=== PATIENT | male | born 1990 | race Caucasian/White ===

== ENCOUNTER 2017-06-17 16:51 | Emergency (ER) | payer MEDICAID ==
--- NOTE | 2017-06-17 17:16 | ED Physician Chart ---
ED Chief Complaint/HPI - Patient Information Date Seen:: 06/17/17 Time Seen:: 17:08 Chief Complaint:: Dog bites to L lower leg. History of Present Illness:: Brought in by private auto because pt sustained dog bites to L mid medial lower leg at about 4:30 pm today. Pt tried to separate a dog fight between his 2 dogs and accidentally was bitten by one of his dogs. Last tetanus immunization was less than 5 years ago. Pt remains ambulatory without difficulty. Pt states that his 2 dogs are up to date with immunizations. Allergies:: Allergies Allergy/AdvReac Type Severity Reaction Status Date / Time No Known Allergies Allergy Verified 06/17/17 17:02 Vitals:: Vital Signs - 8 hr 06/17/17 17:02 Temp 98.2 F HR 96 RR 18 BP 114/77 O2 Sat % 97 Historian:: Patient Family MD/PCP:: Unknown LMP:: N/A Review:: Nurse's Note Reviewed ED Review of Systems - Review of Systems General/Constitutional: No fever, No weight loss, No weakness, No edema Skin: No bruising, Other (Dog bites to L lower leg, see HPI.) Head: No headache, No light-headedness Eyes: No loss of vision, No pain, No diplopia ENT: No earache, No nasal drainage, No sore throat Neck: No neck pain, No swelling, No thyromegaly, No stiffness, No mass noted Cardio Vascular: No chest pain, No palpitations Pulmonary: No SOB, No cough, No wheezing GI: No nausea, No vomiting, No diarrhea, No pain G/U: No dysuria, No frequency, No hematuria Musculoskeletal: No bone or joint pain, No back pain, No muscle pain Endocrine: No polyuria, No polydipsia Psychiatric: No prior psych history Hematopoietic: No bruising, No lymphadenopathy Allergic/Immuno: No urticaria, No angioedema Neurological: No syncope, No focal symptoms, No weakness, No paresthesia, No headache, No dizziness, No confusion ED Past Medical History - Past Medical History Past Medical History: No significant medical hx Family History: Heart disease (mother, MGM, MGF), Diabetes Melitus (MGM), HTN ( Mother, MGM), Cancer (MGF) Social History: Smoker (One pack per week. Pt has been informed about health risks associated with chronic tobacco use and has been advised to quit. Pt has been encouraged to enroll in a smoking cessation program. Pt acknowledges understanding.), No Alcohol, No Drug Use, Single, Employed, Other (Lives with his significant other.) Employment:: [employer] Surgical History: other (L knee surgery at about age 7.) Psychiatricy History: None Medication: None Family Medical History - Family Member Mother History Unknown: Yes Ethnicity: Non- Hx Family Cancer: No Hx Family Coronary Artery Disease: No Hx Family Congestive Heart Failure: No Hx Family Hypertension: No Hx Family Stroke: No Hx Family Diabetes: No Maternal Grandfather Ethnicity: Living Status: Hx Family Coronary Artery Disease: Yes Hx Family Diabetes: Yes Maternal Grandmother Ethnicity: Living Status: Still Living Hx Family Diabetes: Yes ED Physical Exam - Physical Examination General/Constitutional: Awake, Well-developed, well-nourished, Alert, No distress, GCS 15, Non-toxic appearing, Ambulatory Other Gen/Cons comments:: Breathes comfortably, speaks clearly, interacts normally, and ambulates without difficulty. Head: Atraumatic Eyes: Lids, conjuctiva normal, PERRL, EOMI Skin: Well hydrated, No lymphadenopathy Other Skin comments:: See also Extremities exam. ENMT: Lips, teeth, gums nl, Oropharynx nl Neck: Nontender, Full ROM w/o pain, No nuchal rigidity, No mass, No stridor Respiratory: Nl effort/Exclusion, Clear to Auscultation, No Wheeze/Rhonchi/Rales Cardio Vascular: RRR, No murmur, gallop, rubs GI: No tenderness/rebounding/guarding, No organomegaly, Normal BS's, Nondistended Other GI comments:: Abdomen is soft. Other Extremities comments:: LLE: Good ROM of all joints. There is an approx 3 cm transverse laceration at mid medial lower leg. 4 smaller wounds medial to the wound as described that are approx. 1 cm, 1 cm, 0.6 cm, and 0.5 cm respectively. No active bleeding, erythema, or exudate. No detectable motor/sensory/vascular deficit. Neuro/Psych: Alert/oriented (oriented x 3.), Mood normal, Normal gait, No focal deficits ED Septic Shock - . Is Septic Shock (SBP<90, OR Lactate>4 mmol\L) present?: No - <6hrs of presentation: Vital Signs: Vital Signs - 8 hr 06/17/17 17:02 Temp 98.2 F HR 96 RR 18 BP 114/77 O2 Sat % 97 ED Reassessment (Disposition) - Reassessment Reassessment:: 1914 Laceration repairs in left medial lower leg: Pt was prepped and draped in usual sterile manner. 1% xylocaine without epinephrine was used as local anesthesia. Pt has a total of 4 wounds. All wounds were cleansed with betadine, and then they were well irrigated with sterile normal saline. Wounds were explored. No foreign body was found. The biggest wound is about 3 cm and was well approximated with 6 4-0 nylon sutures. The other 4 wounds are approx. 1 cm, 1 cm, 0.6 cm, and 0.5 cm in length. Each of which was well approximated with one 4-0 nylon suture. Pt tolerated the procedure well without immediate complications. 1924 Pt remains comfortable and ambulates without difficulty. Pt requests to go home now and does not want further observation/management in hospital. Aftercare instructions have been given. Reassessment Condition:: Improved - Diagnosis Diagnosis:: Dog bites with 4 open wounds in medial left lower leg, s/p wound repair. - Aftercare/Follow up Instructions Aftercare/Follow-Up Instructions:: Refer to Discharge Instructions Notes:: Keep wounds clearn and dry. Wound care instructions given. May take Motrin 200 mg tab 4 tabs po q8h prn pain. Dog Bite Report has been completed and filed per nursing staff. F/U with Dr. Carranza or PCP of pt's choice in one day for recheck. Wound check again in 3 days. Sutures out in 8 to 10 days. Return to ER immediately if condition worsens or if any further questions/problems. Medication Prescribed:: Augmentin 875/125 mg tab one tab po q12h for 10 days. D-20 R-0 - Patient Disposition Discharge/Transfer:: Home Time:: 19:30 Condition at Disposition:: Stable, Improved ED Discharge Plan - Patient Disposition Admit/Discharge/Transfer: PT DISCHARGED HOME Condition at Disposition: Improved Instructions: Animal Bite, [id number], Laceration Care, Adult, [id number] Additional Instructions: FILL YOUR PRESCRIPTION AND TAKE IT DIRECTED. FOLLOW UP WITH YOUR REGULAR DOCTOR IN 1-2 DAYS FOR A WOUND CHECK AND RETURN IN 8-10 DAYS FOR SUTURE REMOVAL. Forms: Work Release Form
[2017-06-17] MEDS ORDERED: Triple Antibiotic 0.94 gm Pkt TP STA (19:28)
[2017-06-17] MEDS ORDERED: Bacitracin pkt 1 gm Pkt TP ONE (19:43)
== END 2017-06-17 20:10 | disposition home or self-care (01) ==
LOC: ER 16:51
DX: S81.852A Open bite, left lower leg, initial encounter (principal); F17.200 Nicotine dependence, unspecified, uncomplicated; W54.0XXA Bitten by dog, initial encounter; Y93.89 Activity, other specified; Y92.89 Other specified places as the place of occurrence of the external cause; Y99.8 Other external cause status
CPT/HCPCS: 99284; 12002; Z7610; Z7502

== ENCOUNTER 2017-06-20 19:24 | Emergency (ER) | payer MEDICAID ==
--- NOTE | 2017-06-21 02:05 | ED Physician Chart ---
ED Chief Complaint/HPI - Patient Information Date Seen:: 06/20/17 Time Seen:: 19:25 Chief Complaint:: Left Leg Redness History of Present Illness:: onset x one day of left leg redness and swelling around 3 day old sutured wounds despite Rx with Augmentin; pt denies calf pain, gait changes, paresthesias, weakness, dizziness, fever, chills, H/As, neck pain, C/P, cough, SOB, Abd. Pain, A/N/V/D/C, or urinary s/s; Last Tetanus Shot: < 5 years; UTD Allergies:: Allergies Allergy/AdvReac Type Severity Reaction Status Date / Time No Known Allergies Allergy Verified 06/17/17 17:02 Vitals:: Vital Signs - 8 hr 06/20/17 19:28 Temp 97.8 F HR 85 RR 19 BP 137/85 O2 Sat % 98 Historian:: Patient Review:: Nurse's Note Reviewed ED Review of Systems - Review of Systems General/Constitutional: No fever, No chills, No weight loss, No weakness, No diaphoresis, No edema, No loss of appetite Skin: Skin lesions, No rash, No bruising Head: No headache, No light-headedness Eyes: No loss of vision, No pain, No diplopia ENT: No earache, No nasal drainage, No sore throat, No tinnitus Neck: No neck pain, No swelling, No thyromegaly, No stiffness, No mass noted Cardio Vascular: No chest pain, No palpitations, No PND, No orthopnea, No edema Pulmonary: No SOB, No cough, No sputum, No wheezing GI: No nausea, No vomiting, No diarrhea, No pain, No melena, No hematochezia, No constipation, No hematemesis G/U: No dysuria, No frequency, No hematuria Musculoskeletal: No bone or joint pain, No back pain, No muscle pain Endocrine: No polyuria, No polydipsia Psychiatric: No prior psych history, No depression, No anxiety, No suicidal ideation Hematopoietic: No bruising, No lymphadenopathy Allergic/Immuno: No urticaria, No angioedema Neurological: No syncope, No focal symptoms, No weakness, No paresthesia, No headache, No seizure, No dizziness, No confusion, No vertigo ED Past Medical History - Past Medical History Obtainable: Yes Past Medical History: No significant medical hx Family History: HTN Social History: Non Smoker, No Alcohol, No Drug Use, , Employed Surgical History: None Psychiatricy History: None Medication: Reviewed Family Medical History - Family Member Mother History Unknown: Yes Ethnicity: Non- Hx Family Cancer: No Hx Family Coronary Artery Disease: No Hx Family Congestive Heart Failure: No Hx Family Hypertension: No Hx Family Stroke: No Hx Family Diabetes: No Maternal Grandfather Ethnicity: Living Status: Hx Family Coronary Artery Disease: Yes Hx Family Diabetes: Yes Maternal Grandmother History Unknown: Yes Ethnicity: Living Status: Still Living Hx Family Diabetes: Yes ED Physical Exam - Physical Examination General/Constitutional: Awake, Well-developed, well-nourished, Alert, No distress, GCS 15, Non-toxic appearing, Ambulatory Head: Atraumatic Eyes: Lids, conjuctiva normal, PERRL, EOMI Skin: No rash, No ecchymosis, Well hydrated, No lymphadenopathy Other Skin comments:: + Localized Cellulitis around sutured wounds of the left lower leg region; no FBs; Gait: WNL; good motor, tendon, and sensory functions; good NV functions; no calf tenderness; -Val's sign; no DVT; no wound drainage; no abscesses ENMT: External ears, nose nl, Nasal exam nl, Lips, teeth, gums nl Neck: Nontender, Full ROM w/o pain, No JVD, No nuchal rigidity, No bruit, No mass, No stridor Respiratory: Nl effort/Exclusion, Clear to Auscultation, No Wheeze/Rhonchi/Rales Cardio Vascular: RRR, No murmur, gallop, rubs, NL S1 S2 GI: No tenderness/rebounding/guarding, No organomegaly, No hernia, Normal BS's, Nondistended, No mass/bruits, No McBurney tenderness : No CVA tenderness Extremities: No tenderness or effusion, Full ROM, normal strength in all extremities, No edema, Normal digits & nails Neuro/Psych: Alert/oriented, DTR's symmetric, Normal sensory exam, Normal motor strength, Judgement/insight normal, Mood normal, Normal gait, No focal deficits Misc: Normal back, No paraspinal tenderness ED Septic Shock - . Is Septic Shock (SBP<90, OR Lactate>4 mmol\L) present?: No - <6hrs of presentation: Vital Signs: Vital Signs - 8 hr 06/20/17 19:28 Temp 97.8 F HR 85 RR 19 BP 137/85 O2 Sat % 98 ED Reassessment (Disposition) - Reassessment Reassessment:: pt is asymptomatic upon discharge Reassessment Condition:: Improved - Diagnosis Diagnosis:: Left Leg Wounds; Localized Cellulitis; Wound Infection - Aftercare/Follow up Instructions Aftercare/Follow-Up Instructions:: Counseled pt regarding lab results/diagnosis & need follow up, Refer to Discharge Instructions, Counseled pt & family regarding lab results/diagnosis & need follow up Medication Prescribed:: Rx: Keflex 500mg po qid x 10 days; Neosporin Ointment bid x 14 days; Warm Compresses; Stop taking Augmentin; Sutures to be removed in 4 to 7 days - Patient Disposition Discharge/Transfer:: Home Condition at Disposition:: Stable, Improved (RTER prn if existing s/s reoccur and/or get worse and/or any other new s/s occur; ACIs given for all above Dx; Refer to Vascular Surgeon/Orthopedist/Film Rental Clerk JAGUAR; F/U with PMD in one day or prn; RTER prn if concerned) ED Discharge Plan - Patient Disposition Admit/Discharge/Transfer: PT DISCHARGED HOME Instructions: Wound Infection, [id number] Additional Instructions: stop taking previous antibiotic prescribed and start taking the new prescription. keep wound clean and away from hot and andrew places follow up with your primary medical doctor Forms: Work Release Form
== END 2017-06-20 19:54 | disposition home or self-care (01) ==
LOC: ER 19:24
DX: L03.116 Cellulitis of left lower limb (principal); S80.922A Unspecified superficial injury of left lower leg, initial encounter; X58.XXXA Exposure to other specified factors, initial encounter; Y93.89 Activity, other specified; Y92.89 Other specified places as the place of occurrence of the external cause; Y99.8 Other external cause status
CPT/HCPCS: 99283; 96372; J0696; Z7502

== ENCOUNTER 2017-06-28 12:40 | Emergency (ER) | payer MEDICAID ==
--- NOTE | 2017-06-28 13:12 | ED Physician Chart ---
ED Chief Complaint/HPI - Patient Information Date Seen:: 06/28/17 Time Seen:: 13:00 Chief Complaint:: dogbite left leg History of Present Illness:: Patient sustained a bite from his own dog to his left calf 06/17/2017. The lesions were sutured here and patient followed up at [facility] at [address] [place] [address]. patient was initially prescribed Augmentin and then switched to Keflex and clindamycin was added. The PA is concerned that there might be a deep abscess or abscesses because of induration surrounding the lesions and the patient was sent here for an ultrasound. Sutures were removed today Allergies:: Allergies Allergy/AdvReac Type Severity Reaction Status Date / Time No Known Allergies Allergy Verified 06/28/17 12:54 Vitals:: Vital Signs - 8 hr 06/28/17 12:54 Temp 98.2 F HR 88 RR 18 BP 124/64 O2 Sat % 98 Historian:: Patient Review:: Nurse's Note Reviewed ED Review of Systems - Review of Systems General/Constitutional: No fever, No chills Skin: Skin lesions Head: No headache Eyes: No loss of vision ENT: No earache, No nasal drainage Neck: No neck pain Cardio Vascular: No chest pain, No palpitations Pulmonary: No SOB, No cough GI: No nausea, No vomiting, No diarrhea G/U: No dysuria Musculoskeletal: No bone or joint pain Endocrine: No polyuria Psychiatric: No prior psych history, No depression Hematopoietic: No bruising Allergic/Immuno: No urticaria Neurological: No syncope, No focal symptoms ED Past Medical History - Past Medical History Past Medical History: No significant medical hx Family History: Heart disease, Diabetes Melitus, HTN, Cancer Social History: Other (smokes and drinks socially only) Surgical History: other (left knee for removal of the needle) Psychiatricy History: None Medication: Reviewed Family Medical History - Family Member Mother History Unknown: Yes Ethnicity: Non- Hx Family Cancer: No Hx Family Coronary Artery Disease: No Hx Family Congestive Heart Failure: No Hx Family Hypertension: No Hx Family Stroke: No Hx Family Diabetes: No Maternal Grandfather Ethnicity: Living Status: Hx Family Coronary Artery Disease: Yes Hx Family Diabetes: Yes Maternal Grandmother History Unknown: Yes Ethnicity: Living Status: Still Living Hx Family Diabetes: Yes ED Physical Exam - Physical Examination General/Constitutional: Well-developed, well-nourished, Alert, No distress Head: Atraumatic Eyes: Lids, conjuctiva normal, PERRL Skin: No rash Other Skin comments:: Left calf: There is a 3 cm long by about 3 mm wide crust and 4 about 2 mm in diameter crusts. There is oozing of minimal serosanguineous discharge. There is some induration surrounding the lesions. ENMT: Nasal exam nl, Lips, teeth, gums nl Neck: No nuchal rigidity Respiratory: Nl effort/Exclusion, Clear to Auscultation Cardio Vascular: RRR, No murmur, gallop, rubs, NL S1 S2 GI: No tenderness/rebounding/guarding, No organomegaly, No hernia : No CVA tenderness Extremities: No tenderness or effusion Neuro/Psych: No focal deficits Misc: No paraspinal tenderness ED Labs/Radiology/EKG Results - Radiology Results Results: Venous Doppler left leg is negative for DVT and negative for abscess. ED Septic Shock - <6hrs of presentation: Vital Signs: Vital Signs - 8 hr 06/28/17 12:54 Temp 98.2 F HR 88 RR 18 BP 124/64 O2 Sat % 98 ED Reassessment (Disposition) - Reassessment Reassessment Condition:: Unchanged - Diagnosis Diagnosis:: Wound check dogbite left lower leg ED Discharge Plan - Patient Disposition Instructions: Wound Check Additional Instructions: Pls follow up with primary care physician in 1-2 days. Forms: Work Release Form
--- NOTE | 2017-06-28 14:09 | Diagnostic Imaging Report ---
Left lower extremity DVT study HISTORY: Pain, rule out DVT or abscess COMPARISON: None Technique: Longitudinal and transverse sonographic images of the left lower extremity veins were obtained with doppler analysis. FINDINGS: There is normal compressibility, augmentation and phasicity of the left common femoral, superficial femoral, popliteal, and posterior tibial veins. No thrombus is visualized. Small amount of edema is seen along the left calf region. IMPRESSION: No evidence of thrombus within the left lower extremity veins. Small amount of edema within the left calf region possibly due to cellulitis. No discrete collection identified.
== END 2017-06-28 14:05 | disposition home or self-care (01) ==
LOC: ER 12:40
DX: S81.852A Open bite, left lower leg, initial encounter (principal); F17.200 Nicotine dependence, unspecified, uncomplicated; W54.0XXA Bitten by dog, initial encounter; Y93.89 Activity, other specified; Y92.89 Other specified places as the place of occurrence of the external cause; Y99.8 Other external cause status
CPT/HCPCS: 93971-TC-LT; Z7502